=== PATIENT | male | born 2000 | race Caucasian/White ===

== ENCOUNTER → 2022-09-24 09:58 | Outpatient (BNVA) | payer MEDICAID, SELFPAY | PROVIDERS: Visit Provider Physician Assistant | DX: M54.50 Low back pain, unspecified (principal) | CPT/HCPCS: 72110 ==

== ENCOUNTER 2022-11-27 08:53 | Outpatient (CLI) | payer MEDICAID, SELFPAY ==
[2022-11-27 09:13] VITALS: PULSE 105; RESP 18; O2SAT 99
[2022-11-27] MEDS: albuterol 2.5 mg/3 mL Neb INHALATION (09:16)
[2022-11-27 09:17] VITALS: PULSE 98
== END 2022-11-27 08:54 | disposition home or self-care (01) ==
PROVIDERS: PCP Family Medicine; Visit Provider Family Medicine
DX: J45.909 Unspecified asthma, uncomplicated (principal)
CPT/HCPCS: 94060; J7613

== ENCOUNTER → 2023-04-22 09:48 | Outpatient (BNVA) | payer MEDICAID, SELFPAY | PROVIDERS: PCP Family Medicine; Visit Provider Nurse Practitioner Family | DX: J06.9 Acute upper respiratory infection, unspecified (principal) | CPT/HCPCS: 87400 ==

== ENCOUNTER 2024-05-26 07:59 | Day surgery (SDC) | payer MEDICAID, SELFPAY ==
[2024-05-26] VITALS (10 sets, daily range): BP systolic 116–132; BP diastolic 61–79; PULSE 77–102; RESP 16–18; TEMP 36.1–36.3; O2SAT 95–98
[2024-05-26] MEDS: sodium chloride 0.9% 1,000 ML 30 ML IV (08:20)
--- NOTE | 2024-05-26 08:22 | ANES.PREANE2 ---
Pre-Anesthetic Assessment Height/Weight: Height 1.7 m Weight 83.915 kg Temp Pulse Resp BP Pulse Ox O2 Del Method 97.4 F L 102 H 18 125/79 98 Room Air 05/26/24 08:13 05/26/24 08:13 05/26/24 08:13 05/26/24 08:13 05/26/24 08:13 05/26/24 08:13 Operation Date: 05/26/24 10:00 Proposed Procedures p pilonidal cyst Incision And Drainage [id number] L05.91(Not Applicable) - Aquilino Malin MD s Possiible Pilonidal Cyst Resection(Not Applicable) - Aquilino Malin MD Familial anesthetic complications: None Was Beta Marc taken within 24 hours: N/A Was Clonidine taken within 24 hours: N/A Last intake: Intake Last Liquid Date 05/25/24 Last Liquid Time 22:00 Last Solid Date 05/25/24 Last Solid Time 20:00 Social No alcohol and No tobacco Exam alert, oriented x 3, clear to auscultation bilaterally and regular rate & rhythm Airway Mallampati: Class II Dentition: full Pulmonary Asthma Anesthetic Plan ASA status: 2 Anesthesia: General Risk of > 500 ml blood loss (7ml/kg in children): No Medications/Allergies Home Medications ?Medication ?Instructions ?Recorded ?Confirmed ?Last Taken ?Type hydroxyzine HCl 50 mg tablet 50 mg PO QID PRN anxiety attack or 10/29/22 05/26/24 Unknown Rx insomnia #120 tabs albuterol sulfate 1 puff inhalation DAILY 05/13/24 05/26/24 Unknown History melatonin 10 mg capsule 10 mg PO DAILY PRN Insomnia 05/13/24 05/26/24 Unknown History Allergies Allergy/AdvReac Type Severity Reaction Status Date / Time No Known Allergies Allergy Verified 05/25/24 08:56 Current Medications Generic Name Dose Route Start Last Admin Trade Name Freq PRN Reason Stop Dose Admin Sodium Chloride 1,000 mls @ 30 mls/hr 05/26/24 08:15 05/26/24 08:20 Sodium Chloride 0.9% IV 05/27/24 08:14 30 mls/hr .Q24H SRIKANTH Administration PFSH Anesthesia Social History Smoking and tobacco/nicotine status: current some day tobacco/nicotine user Data Anesthesia Cardiac Studies: No Data to Display
--- NOTE | 2024-05-26 09:12 | W.PM.OPSUD ---
Surgery/Procedure H&P Update DATE OF PROCEDURE: May 26, 2024 DATE H&P PERFORMED: 05/13/24 H&P UPDATE INFORMATION: I have reviewed H&P completed within last 30 days, I have examined patient prior to procedure and No changes to prior documentation PLANNED PROCEDURE: Operation Date: 05/26/24 10:00 Proposed Procedures p pilonidal cyst Incision And Drainage [id number] L05.91(Not Applicable) - Aquilino Malin MD s Possiible Pilonidal Cyst Resection(Not Applicable) - Aquilino Malin MD
[2024-05-26] MEDS: ceFAZolin 2,000 mg SDV 2000 MG IVP (09:30)
[2024-05-26] MEDS: lidocaine-epi 1% 20 mL INJ INJECTION (09:37)
--- NOTE | 2024-05-26 09:47 | P.OP_ITS ---
Operative Report Date of procedure: May 26, 2024 Pre-op diagnosis: Pilonidal cyst Post-op diagnosis: same Post-op findings: Pilonidal cyst excised approximately 2 x 2 cm. Procedure done: Pilonidal cyst excision. Implants: N/A Specimens removed/disposition: Pilonidal cyst 2 x 2 cm Pathology: Pilonidal cyst sent to pathology Surgeon: Aquilino Malin MD Hearing Instrument Specialist: N/A Anesthesia: General Estimated blood loss (mL): 10 Complications: N/A Findings: Pilonidal cyst 2 x 2 cm excised. Wound closed off midline to the left. Condition: stable Disposition: same day Brief History: 23-year-old male with a pilonidal cyst. Discussed risk and benefits and patient agreed to proceed with incision and drainage of pilonidal cyst possible excision of bilateral cyst. Procedure: After obtaining consent patient was brought into the operating room. Preoperative antibiotics were administered. SCDs were on and functional. General anesthesia was induced. Patient was then transferred to the operating room table in prone position. Extremities were appropriately padded. The perineum and back were prepped and draped in the usual sterile fashion. An elliptical incision was carried out around the pilonidal cyst. Electrocautery was used to dissect down to the subcutaneous tissues. The pilonidal cyst was excised with its capsule intact. It was sent to pathology. Pilonidal cyst was approximately 2 x 2 cm. Adequate hemostasis was achieved using electrocautery. Deep dermal layer was closed using interrupted 2-0 Vicryl. Skin was closed using interrupted vertical mattress sutures using 2-0 nylon and interrupted simple stitches using 2-0 nylon. Triple antibiotic ointment was applied. Fluffs and mesh panties were used. The patient woke up from anesthesia without any complications and transferred to PACU.
[2024-05-26] MEDS: ondansetron 2 mg/ML SDV 2 mL 4 MG IVP (10:00)
[2024-05-26] MEDS: oxyCODONE 5 mg IR Tab/Cap PO (10:48)
--- NOTE | 2024-05-26 11:05 | ANE.PACU2 ---
Inpatient post-anesthesia follow up: Airway intact: Yes Vital signs: Temperature 97 F Pulse Rate 81 Respiratory Rate 18 Blood Pressure 116/61 Pulse Oximetry 97 Oxygen Delivery Me thod Room Air Oxygen Flow Rate 8 Fraction of Inspir ed Oxygen Hydration adequate: Yes Nausea and vomiting: No Pain level: 1 Mental status: Baseline
== END 2024-05-26 10:46 | disposition home or self-care (01) ==
PROVIDERS: PCP Family Medicine; Visit Provider Student in an Organized Health Care Education/Training Program
PROC: (CPT 11770; principal; 2024-05-26 10:00)
PROC: (CPT 11770; 2024-05-26 10:00)
DX: L05.91 Pilonidal cyst without abscess (principal)
CPT/HCPCS: 11770; 88304; A4216; J0330; J0690; J1100; J2250; J2405; J2704; J3010; J3490; J7030; J9999

== ENCOUNTER 2024-06-08 20:44 | Emergency (ER) | payer MEDICAID, SELFPAY ==
[2024-06-08 20:46] VITALS: BP 155/83; PULSE 111; RESP 14; TEMP 37.2; O2SAT 98
--- NOTE | 2024-06-08 21:40 | W.ED.WOUNDLC ---
HPI - Wound/Laceration General: Chief Complaint: Wound/Laceration Stated Complaint: cyst removal 05/26, wound is open and draining Time Seen by Provider: 06/08/24 20:49 Source: patient Mode of arrival: ambulatory Limitations: no limitations History of Present Illness: Patient is a 23-year-old male who presents the emergency department due to wound dehiscence. On 05/26 had pilonidal cyst removal, recently had his sutures removed and states that the wound was noted to be open upon dressing change today. No other symptoms reported, no fever, no active drainage, no severe pain. Location: other (Pilonidal cyst wound dehiscence) Associated symptoms: Denies chills, fever(s), nausea or vomiting Related Data Home Medications ?Medication ?Instructions ?Recorded ?Confirmed albuterol sulfate 1 puff inhalation DAILY 05/13/24 06/07/24 melatonin 10 mg capsule 10 mg PO DAILY PRN Insomnia 05/13/24 06/07/24 Previous Rx's ?Medication ?Instructions ?Recorded hydroxyzine HCl 50 mg tablet 50 mg PO QID PRN anxiety attack or 10/29/22 insomnia #120 tabs Allergies Allergy/AdvReac Type Severity Reaction Status Date / Time Latex, Natural Rubber Allergy ALGY-Rash Verified 06/08/24 20:50 Review of Systems General: Reports: 10 or more systems reviewed and unremarkable except in HPI and below Const: Denies: fever(s) or chills Card: Denies: chest pain Resp: Denies: dyspnea GI: Denies: abdominal pain, nausea, vomiting or diarrhea Musc: Denies: extremity pain or joint pain Skin/Breast: Reports: other (Wound dehiscence); Denies: rash, skin pain, skin tenderness or new lesions Neuro: Denies: headache(s) PFS ED PFSH: Social History Smoking and tobacco/nicotine status: current some day tobacco/nicotine user Physical Exam Const: COMMON NORMALS: no acute distress, average body habitus, patient oriented x3, no limitations, healthy appearing, alert and well nourished HENMT: COMMON NORMALS: normocephalic and atraumatic HEAD & SCALP: normocephalic and atraumatic Neck/C-Spine: COMMON NORMALS: full ROM, no lymphadenopathy, supple and no meningeal signs Resp: COMMON NORMALS: normal respiratory effort, No use of accessory muscles and clear to auscultation bilaterally AUSCULTATION: clear to auscultation bilaterally Cardio: COMMON NORMALS: regular rate and regular rhythm RATE: regular rate RHYTHM: regular rhythm Extremity: COMMON NORMALS: full ROM and capillary refill normal Neuro: COMMON NORMALS: patient oriented x3 SENSORIUM/ORIENTATION: Yes alert MENINGEAL SIGNS: Yes no meningeal signs Skin: COMMON NORMALS: turgor normal NARRATIVE SKIN EXAM: Evaluation of gluteal cleft shows mild wound dehiscence noted of previous pilonidal cyst removal. No active bleeding or drainage. GENERAL SKIN EXAM: turgor normal Course Vital Signs: Vital signs: Vital Signs Temperature 98.9 F 06/08/24 20:46 Pulse Rate 111 H 06/08/24 20:46 Respiratory Rate 14 06/08/24 20:46 Blood Pressure 155/83 06/08/24 20:46 Pulse Oximetry 98 06/08/24 20:46 Oxygen Delivery Me thod Room Air 06/08/24 20:46 MDM - Wound/Laceration Medical Decision Making Patient presenting with dehiscence of his pilonidal cyst. Spoke with Dr. Malin, who removed the cyst, and he states to pack, dressed with gauze, and then to have him follow-up with him in his office. I relayed this information to the patient and spouse in the room, told him to change the dressing every day and to follow-up as scheduled. Patient had no other symptoms to report, vitals unremarkable will be discharged at this time. No radiology studies performed this visit Discharge Plan Discharge Patient Disposition: Home Clinical Impression: Pilonidal cyst, Wound dehiscence Condition: Stable Prescriptions: No Action albuterol sulfate 1 puff inhalation DAILY melatonin 10 mg capsule 10 mg PO DAILY PRN (Reason: Insomnia) hydroxyzine HCl 50 mg tablet 50 mg PO QID PRN (Reason: anxiety attack or insomnia) Qty: 120 1RF Discharge Orders: Discharge ED (Routine); Ordered 06/08/24 Ordered By: Jackson Patel Referrals: Manuela Leo DO [Primary Care Provider] - Activity Restrictions/Additional Instructions: Call Dr. Malin's office in the morning to schedule follow-up appointment later this week. Keep packing in the wound, and keep dressed appropriately. Change the packing daily as discussed. Return with any signs of infection, active drainage, severe worsening of pain, fevers, or other concerning symptoms. Print Language: Japanese Coding Level of Care Code ED Booth Operator for Johnathon Kaplan
[2024-06-08 21:46] VITALS: BP 140/83; PULSE 88; RESP 17; O2SAT 97
== END 2024-06-08 21:49 | disposition home or self-care (01) ==
PROVIDERS: Emergency Provider Physician Assistant; PCP Family Medicine
DX: L05.91 Pilonidal cyst without abscess (principal); T81.30XA Disruption of wound, unspecified, initial encounter; Z72.0 Tobacco use; X58.XXXA Exposure to other specified factors, initial encounter
CPT/HCPCS: 99282